=== PATIENT | male | born 1955 | race Caucasian/White ===

== ENCOUNTER 2024-05-24 20:42 | Observation (INO) | payer MEDICARE ==
[2024-05-24 21:19] LABS: #Basophils 0.03 10x3/uL (0.0-0.2); %Basophils 0.5 % (0.0-1.0); %Eosinophils 0.7 % (0.0-10.0); %Lymphocytes 21.8 % (21.0-51.0); %Monocytes 11.5 % (0.0-10.0); %Neutrophils 65.2 % (42.0-75.0); Hematocrit 34.2 % (42.0-52.0); Hemoglobin 11.9 g/dL (14.0-18.0); Mean Corpuscular HGB CONC 34.8 g/dL (32.0-36.0); Mean Corpuscular Hemoglobin 32.7 pg (27.0-31.0); Mean Platelet Volume 10.6 fL (7.4-10.4); Platelet Count 191 10x3/uL (130-400); RBC Distribution Width 14.3 % (11.5-14.5); Red Blood Cell (RBC) Count 3.64 mill/uL (4.70-6.10)
[2024-05-24 21:37] LABS: ALT (SGPT) 42 U/L (8-55); AST (SGOT) 77 U/L (5-34); Albumin 3.9 g/dL (3.4-4.8); Alkaline Phosphatase 173 U/L (40-110); Anion Gap 20 mmol/L (10-20); BUN (Urea Nitrogen) 23 mg/dL (8.4-25.7); Bilirubin, Total 1.9 mg/dL (0.2-1.2); Calc. Creatinine Clearance 0 mL/min (70-130); Calcium 9.1 mg/dL (7.8-10.44); Carbon Dioxide 19 mmol/L (23-31); Chloride 100 mmol/L (98-107); Estimated GFR 60; Globulin 3.3 g/dL (2.4-3.5); Glucose 111 mg/dL (80-115); Potassium 3.7 mmol/L (3.5-5.1); Protein, Total 7.2 g/dL (5.8-8.1); Sodium 135 mmol/L (136-145)
[2024-05-24 23:52] LABS: Prothrombin Time 23.1 sec (12.0-14.7)
[2024-05-25] MEDS ORDERED: Glucagon 1 MG/ML KIT IM PRN (01:10)
[2024-05-25] MEDS ORDERED: Nitroglycerin 0.4 MG TAB (25 Tab Bottle) SL PRN (01:10)
[2024-05-25] MEDS ORDERED: Ondansetron PF 4 MG/2 ML Vial IVP PRN (01:10)
[2024-05-25] MEDS ORDERED: Dextrose 50% Abboject 50 ML SYRINGE SLOW IVP PRN (01:10)
[2024-05-25] MEDS ORDERED: Dextrose 5% in Water 1,000 ML IV PRN (01:10)
[2024-05-25] MEDS ORDERED: Acetaminophen 325 MG TAB PO PRN (01:10)
[2024-05-25] MEDS ORDERED: Ondansetron ODT 4 MG TAB PO PRN (01:10)
[2024-05-25] MEDS ORDERED: Insulin Lispro 100 UNIT/ML 10 ML VIAL SC PRN ×2 (01:10)
[2024-05-25 01:22] LABS: Troponin I 0.052 ng/mL (< 0.028)
[2024-05-25 01:55] VITALS: BMI 36.9
[2024-05-25] MEDS: Warfarin Sodium 2 MG TAB PO SCH (02:45)
[2024-05-25 04:27] LABS: Troponin I 0.063 ng/mL (< 0.028)
[2024-05-25 04:32] LABS: Cardiac Risk 2.1 (Less than 4.5)
[2024-05-25] MEDS ORDERED: Aspirin Chewable 81 MG TAB PO SCH ×2 (09:00→21:00)
[2024-05-25] MEDS ORDERED: Regadenoson 0.4 MG/5 ML SYRINGE ONE (10:18)
[2024-05-25] MEDS: Furosemide 20 MG TAB PO SCH (14:43)
[2024-05-25] MEDS: Hydrochlorothiazide 25 MG TAB PO SCH (14:44)
[2024-05-25] MEDS: Lisinopril 20 MG TAB PO SCH (14:46)
[2024-05-25] MEDS: Amlodipine 10 MG TAB PO SCH (14:46)
[2024-05-25 15:48] VITALS: BP 148/74; TEMP 97.8
[2024-05-25] MEDS ORDERED: Warfarin Sodium 2 MG TAB PO SCH (17:00)
[2024-05-25] MEDS ORDERED: Rosuvastatin 20 MG TAB PO SCH (21:00)
[2024-05-25] MEDS ORDERED: Amiodarone 200 MG TAB PO SCH (21:00)
== END 2024-05-25 16:41 | disposition home or self-care (01) ==
LOC: ERS 20:42 → 2SE 05-25 00:24
PROVIDERS: ADMIT Physician Assistant; ATTEND Internal Medicine
DX: R06.00 Dyspnea, unspecified (principal); R42 Dizziness and giddiness; I10 Essential (primary) hypertension; I25.10 Atherosclerotic heart disease of native coronary artery without angina pectoris; I35.0 Nonrheumatic aortic (valve) stenosis; I48.0 Paroxysmal atrial fibrillation; E11.51 Type 2 diabetes mellitus with diabetic peripheral angiopathy without gangrene; Z79.01 Long term (current) use of anticoagulants; Z79.82 Long term (current) use of aspirin; Z79.84 Long term (current) use of oral hypoglycemic drugs; Z79.899 Other long term (current) drug therapy
CPT/HCPCS: 71045; 78452; 80061; 82962; 83735; 83880; 84484 ×3; 85610; 93005; 93017; A9502; J2785 ×2; 36415; 36416; 80053; 84443; 85025; G0378